=== PATIENT | male | born 1980 | race Caucasian/White ===

== ENCOUNTER 2021-07-11 20:25 | Emergency (ER) | payer OTHER, SELFPAY ==
[2021-07-11 20:29] VITALS: BP 146/94; PULSE 98; RESP 17; TEMP 37.1; O2SAT 97; BMI 42.0
--- NOTE | 2021-07-11 21:31 | ED_ITS ---
HPI - Skin/Abscess/Foreign Bdy General Chief complaint: Skin/Abscess/Foreign Body Stated complaint: renteria rt hand Time Seen by Provider: 07/11/21 20:55 Source: patient Mode of arrival: ambulatory History of Present Illness HPI narrative: 40-year-old male with a past medical history of diabetes presenting to the ED complaining of burn to right middle finger on cooking oil s/p cooking dinner for [employer]. Reports hand partially submerged/hit oil. Denies injury to the area, fever, chills Related Data Previous Rx's Medication Instructions Recorded silver sulfadiazine 1 % topical 1 appl TOPICAL BID #50 g 07/11/21 cream (Silvadene) Allergies Allergy/AdvReac Type Severity Reaction Status Date / Time No Known Allergies Allergy Unverified 07/15/20 16:05 [No Known Allergies*] Review of Systems Review of Systems: Constitutional: No Fever, No Chills Cardiovascular: No Chest Pain, No SOB Respiratory: No Cough Musculoskeletal: No joint pain, No Myalgias, + Joint Swelling Skin: +burn, No rash Neuro: No Weakness, No Numbness, No Paresthesias Yes all other systems are reviewed and are negative [facility] Past Medical History Attestation statement: The following information was validated with the patient. Medical History (Updated 07/11/21 @ 22:18 by GABBI Collins) Diabetes Social History Social History Advance Directives: No Physical Exam Vital Signs: Vital Signs: Last Vital Signs Temp 98.7 F 07/11/21 20:29 Pulse 98 07/11/21 20:29 Resp 17 07/11/21 20:29 BP 146/94 H 07/11/21 20:29 Pulse Ox 97 07/11/21 20:29 Body Mass Index 42.0 Const: General: cooperative, healthy appearing and no acute distress Orientation/consciousness: patient oriented x3 Limitations: no limitations HENMT: Head: Yes normal to inspection Ears: hearing grossly normal bilaterally General nose exam: Normal external nose present Face and sinus: Yes normal facial exam Eyes: General: appearance normal, both eyes and all related structures EOM: EOMs intact bilaterally Neck: Neck: Yes normal visual inspection Resp: Effort & Inspection: normal respiratory effort Auscultation: lung sounds not diminished Cardio: Rate: regular rate GI: Inspection: Yes normal to inspection Skin: Rashes: no rashes Neuro: General: patient oriented x3 and tone normal Gait exam (Neuro): Normal gait present Extrem: Other: 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 Tender to palpation. MDM - Skin/Abscess/Foreign Bdy MDM Narrative Medical decision making narrative: 40-year-old male with a past medical history of diabetes presenting to the ED complaining of burn to right middle finger on cooking oil s/p cooking dinner for [employer]. On exam VSS, NAD, physical exam as above. Will apply Silvadene and nonstick dressing. Patient is to follow-up with his PCP Discharge Plan Discharge Clinical Impression: Burn Patient Disposition: Home, Self-Care Instructions: Superficial Burn (ED) Additional Instructions: Apply Silvadene as prescribed Keep area dry and clean If area begins look infected, is red, there is drainage from the area or you have fever please return to the ED Follow-up with her doctor Prescriptions: New silver sulfadiazine [Silvadene] 1 % cream 1 appl topical BID Qty: 50 RF: 0 Referrals: Physician,Unknown [Primary Care Provider] - 2 days
[2021-07-11] MEDS: Silver Sulfadiazine 1 % Cream 20 GM TUBE 1 APPL TOPICAL (21:41)
== END 2021-07-11 22:29 | disposition home or self-care (01) ==
PROVIDERS: Emergency Provider Student in an Organized Health Care Education/Training Program
DX: T23.101A Burn of first degree of right hand, unspecified site, initial encounter (principal); T31.0 Burns involving less than 10% of body surface; M79.641 Pain in right hand; X10.2XXA Contact with fats and cooking oils, initial encounter; Y93.9 Activity, unspecified; Y92.009 Unspecified place in unspecified non-institutional (private) residence as the place of occurrence of the external cause; Y99.9 Unspecified external cause status
CPT/HCPCS: 99283

== ENCOUNTER 2022-03-09 09:34 | Emergency (ER) | payer OTHER, SELFPAY ==
[2022-03-09 10:52] VITALS: BP 133/87; PULSE 105; RESP 18; TEMP 38.6; O2SAT 98; BMI 37.8
[2022-03-09] MEDS: Ibuprofen 600 MG TABLET PO (10:59)
[2022-03-09 11:06] LABS: Glucose, Whole Blood 275 mg/dL (60-115)
[2022-03-09 11:31] LABS: Influenza A Positive (Negative); Influenza B2 Negative (Negative)
[2022-03-09 11:32] LABS: COVID-19 Test Negative (Negative); IDNOW Serial# 16C4AD1C
--- NOTE | 2022-03-09 11:54 | ED.URI ---
HPI - URI/Sore Throat General Chief Complaint: General Medical Stated Complaint: flu like Time Seen by Provider: 03/09/22 11:43 Source: patient Mode of arrival: ambulatory Limitations: no limitations History of Present Illness HPI Narrative: Patient presents emergency department for evaluation of cough, congestion, and fevers times 4-5 days. States he has received 2 COVID-19 vaccines. Has not received influenza block. Denies any known sick contacts. He denies shaking chills, sore throat, neck pain, chest pain, palpitations, shortness of breath, difficulty breathing, nausea, vomiting, abdominal pain, dysuria, urinary frequency, pedal edema, generalized weakness. Patient is a diabetic, states that he has been trying to obtain a new primary care provider. Has not been taking insulin as he ran out approximately 1 year ago. He has been checking his blood sugars intermittently. Related Data Previous Rx's Medication Instructions Recorded silver sulfadiazine 1 % topical 1 appl TOPICAL BID #50 g 07/11/21 cream (Silvadene) alcohol swabs 1 pad TOPICAL QID 30 Days #200 ea 03/09/22 blood sugar diagnostic (FreeStyle #100 ea 03/09/22 Lite Strips) blood-glucose meter (FreeStyle #1 ea 03/09/22 Lite Meter) insulin glargine 100 unit/mL 15 unit (0.15 mL) SUBCUT BEDTIME 03/09/22 subcutaneous solution (Lantus #10 ml U-100 Insulin) lancets 28 gauge (FreeStyle #100 ea 03/09/22 Lancets) metformin 500 mg tablet 500 mg PO BID 30 Days #60 tab 03/09/22 Allergies Allergy/AdvReac Type Severity Reaction Status Date / Time nitroglycerin AdvReac Headache Verified 03/09/22 10:52 Review of Systems Review of Systems: Constitutional: Positive fever. Positive chills. No weakness. Positive fatigue. ENT/ Mouth: No Ear Pain, positive Nasal Congestion, now is sore throat, No Rhinorrhea, No Swallowing Difficulty Skin: No rash or itching. Cardiovascular: No chest pain. No palpitations. Respiratory: No shortness of breath. Positive cough. No sputum production. Gastrointestinal: No nausea. No vomiting. No diarrhea. No abdominal pain. Genitourinary: No burning micturition. No urinary frequency. Neurologic: No headache. No dizziness. No syncope. No numbness or tingling in the extremities. Musculoskeletal: No muscle pain. No back pain. No joint pain or stiffness. Yes all other systems are reviewed and are negative [facility] Past Medical History Attestation statement: The following information was validated with the patient. Source: old records reviewed Medical History Diabetes Social History Social History Advance Directives: No Advance Directives Information Provided: No Physical Exam Vital Signs: Vital Signs: Last Vital Signs Temp 98.9 F 03/09/22 11:55 Pulse 105 H 03/09/22 10:52 Resp 18 03/09/22 10:52 BP 133/87 03/09/22 10:52 Pulse Ox 98 03/09/22 10:52 BMI result Body Mass Index 37.8 Vital signs have been reviewed as normal and appeared to be correct. Blood pressure normal.? Heart rate normal.? Respiration rate normal. Temperature normal.? Oxygen saturation normal. Appearance: Alert.?Oriented to person, place and time. No acute distress.?Normal affect. Eyes: Pupils equal, round and reactive to light.? ENT: TM normal bilaterally. Pharynx normal.?? Neck: Normal inspection.? Neck supple.??No cervical adenopathy CVS: Heart sounds normal. Normal heart rate and rhythm.? Pulses normal.?? Respiratory: No respiratory distress.? Lung sounds clear to auscultation bilaterally?? Abdomen: Soft and non-tender. Normoactive bowel sounds. Skin: Skin warm and dry.? Normal skin color.? ? Extremities: No lower extremity edema.? Neuro: Moves all extremities spontaneously. Sensation intact bilaterally. No motor deficits. Ambulates with normal steady gait. Course Course Course Narrative: Patient is a 41-year-old male with past medical history of type 2 diabetes, presenting for evaluation of upper respiratory symptoms. COVID-19 testing negative. Influenza testing positive. At this time history and physical exam not consistent with ACS/PE/pneumonia. Well-appearing, nontoxic, afebrile, no tachycardia or tachypnea/hypoxia. Speaking clear full sentences, ambulatory with steady gait. Patient is a type 2 diabetic was not been taking his Lantus insulin 15 units at bedtime or metformin 500 mg p.o. twice daily for what he reports is 1 year, he has been trying to obtain a new primary care provider but is having difficulty. Glucose today is 275. History of physical exam not consistent with DKA. Advised patient to continue monitoring his blood sugars at home fasting in the morning and 3 times daily before meals. Will provide patient with new prescription for Lantus and metformin, provided with instructions regarding obtaining a new primary care provider. Discussed influenza treatment including rest, hydration, Tylenol/ibuprofen as needed for fever and body aches, saline nasal spray, humidifier, [id number] cold medication. Offered Tamiflu and he declined. discussed reasons to return back to the emergency department. All questions were answered. Patient discharged home in stable condition. Provided with a return to work/school note. MDM - URI/Sore Throat Medical Records Attestation: I reviewed the patient's medical records. Lab Data Attestation: I reviewed the patient's lab results. Labs: Lab Results 03/09/22 03/09/22 03/09/22 Range/Units 11:00 11:02 11:02 POC Glucose 275 H (60-115) mg/dL COVID-19 ([facility]) Negative (Negative) COVID-19 Clin Com See Note Influenza Type A ([facility]) Positive A (Negative) Influenza Type B ([facility]) Negative (Negative) Influenza A & B Note See Note Discharge Plan Discharge Clinical Impression: Influenza A, Type 2 diabetes mellitus Patient Disposition: Home, Self-Care Instructions: Influenza (ED), Diabetes and Nutrition (ED), Diabetes and Exercise (ED) Additional Instructions: You have been given a new prescription for your blood glucose meter and supplies. In addition you have been given a new prescription for your Lantus insulin 15 units at bedtime in addition to metformin 500 mg twice a day which is what you were previously taking. As we discussed it is very important that you maintain care with a primary care provider as management of your diabetes is lifelong you may suffer complications without appropriate treatment. You tested positive for flu today, please be sure to rest, stay well hydrated, eat small frequent meals, use Tylenol/ibuprofen as needed for pain or body aches or fevers, return to the emergency department with any new or worsening symptoms or concerns. You can return to work once your symptoms have resolved and you are without fever for 24 hour, Without the use of Tylenol or ibuprofen. Prescriptions: New Lantus U-100 Insulin 100 unit/mL solution 15 unit subcut BEDTIME Qty: 10 0RF metformin 500 mg tablet 500 mg PO BID 30 Days Qty: 60 0RF (DME) blood-glucose meter [FreeStyle Lite Meter] Kit See Rx Instructions .Route Qty: 1 0RF Rx Instructions: As directed (DME) FreeStyle Lite Strips Strip See Rx Instructions .Route Qty: 100 0RF Rx Instructions: As directed (DME) lancets [FreeStyle Lancets] 28 gauge misc See Rx Instructions .Route Qty: 100 0RF Rx Instructions: As directed alcohol swabs Pads, Medicated 1 pad topical QID 30 Days Qty: 200 0RF No Action silver sulfadiazine [Silvadene] 1 % cream 1 appl topical BID Qty: 50 0RF Rx Instructions: apply a 1.5 mm thickness Stand Alone Forms: Work/School Release Interventions: ED Discharge Assessment Last Done: 03/09/22 12:50 Discharge Date/Time: 03/09/22 12:52
[2022-03-09 11:55] VITALS: TEMP 37.2
== END 2022-03-09 12:52 | disposition home or self-care (01) ==
LOC: HO.ED 12:25
PROVIDERS: Emergency Provider Emergency Medicine
DX: J10.1 Influenza due to other identified influenza virus with other respiratory manifestations (principal); E11.9 Type 2 diabetes mellitus without complications; Z20.822 Contact with and (suspected) exposure to COVID-19
CPT/HCPCS: 82947; 87502; 87635; 99283

== ENCOUNTER 2022-05-16 22:42 | Emergency (ER) | payer OTHER, SELFPAY ==
--- NOTE | ~2022-05-16 | XR_ITS ---
EXAMINATION: XR SHOULDER, LEFT CLINICAL INFORMATION: Status post fall COMPARISON: None TECHNIQUE: Three views of the left shoulder. FINDINGS: Glenohumeral alignment is anatomic. No acute fracture is seen. The acromioclavicular joint is intact. XR/XR shoulder LT min 2V IMPRESSION: No acute findings.
[2022-05-16 23:01] VITALS: BP 148/68; BP 148/87; PULSE 100; PULSE 20; RESP 18; TEMP 37.1; O2SAT 98; O2SAT 99; BMI 36.0
--- NOTE | 2022-05-16 23:06 | ED.FALL ---
HPI - Fall General Chief Complaint: Fall Stated Complaint: fall Time Seen by Provider: 05/16/22 23:06 Source: patient Mode of arrival: ambulatory Limitations: no limitations History of Present Illness HPI Narrative: Patient apparently healthy lost balance while trying to protect is 3 years old son and fell on the stairs about 13 steps in no head injury no loss of conscious is who bleeding of pain in the left shoulder also superficial laceration at the sole of the left foot Related Data Previous Rx's Medication Instructions Recorded silver sulfadiazine 1 % topical 1 appl topical BID #50 grams 07/11/21 cream (Silvadene) alcohol swabs 1 pad topical QID 30 days #200 ea 03/09/22 blood sugar diagnostic (FreeStyle #100 ea 03/09/22 Lite Strips) blood-glucose meter (FreeStyle #1 ea 03/09/22 Lite Meter kit) insulin glargine 100 unit/mL 15 unit (0.15 mL) subcut BEDTIME 03/09/22 subcutaneous solution (Lantus #10 mL U-100 Insulin) lancets 28 gauge (FreeStyle #100 ea 03/09/22 Lancets) metformin 500 mg tablet 500 mg PO BID 30 days #60 tabs 03/09/22 ibuprofen 600 mg tablet 600 mg PO Q6H PRN pain #30 tabs 05/17/22 Allergies Allergy/AdvReac Type Severity Reaction Status Date / Time nitroglycerin AdvReac Headache Verified 03/09/22 10:52 Review of Systems Review of Systems: Yes all other systems are reviewed and are negative [facility] Past Medical History Medical History Diabetes Social History Social History Advance Directives: No Physical Exam Vital Signs: Vital Signs: Last Vital Signs Temp 98.8 F 05/16/22 23:01 Pulse 100 05/16/22 23:01 Resp 18 05/16/22 23:01 BP 148/87 H 05/16/22 23:01 Pulse Ox 99 05/16/22 23:01 O2 Del Method 05/16/22 23:01 BMI result Body Mass Index 36.0 Appearance: Alert. Oriented X3. No acute distress. Eyes: PERRLA, No Nystagmus HEENT: Pharynx normal. Oral Mucosa moist atraumatic normocephalic Neck: Normal inspection. Neck supple. CVS: Normal heart rate and rhythm. Pulses normal. Respiratory: No respiratory distress. Equal air entry bilateral, no wheezing/rales/rhonchi Abdomen: Soft and nontender. Bowel sounds are present, no mass palpable, no CVA tenderness Skin: Skin warm and dry. Normal skin color. Normal skin turgor. Superficial flap laceration at the sole of left foot Extremities: No lower extremity edema. No calf tenderness diffuse tenderness left shoulder contour normal neurovascular intact increased pain on abduction of the left shoulder Neuro: Oriented X 3. No motor deficit. MDM - Fall MDM Narrative Medical decision making narrative: Patient left shoulder x-ray negative clinically patient has tendinitis of the rotator cuff had small flap laceration at the sole of left foot which was cleaned and dressing applied Discharge Plan Discharge Clinical Impression: Fall (on) (from) other stairs and steps, initial encounter, Tendonitis of left rotator cuff Patient Disposition: Home, Self-Care Instructions: Rotator Cuff Injury (ED), Foot Contusion (ED) Additional Instructions: Local care as advised Ibuprofen for pain Follow-up with PCP if any concern Wear the sling to support left shoulder Prescriptions: New ibuprofen 600 mg tablet 600 mg PO Q6H PRN (Reason: pain) Qty: 30 0RF No Action silver sulfadiazine [Silvadene] 1 % cream 1 appl topical BID Qty: 50 0RF Rx Instructions: apply a 1.5 mm thickness Lantus U-100 Insulin 100 unit/mL solution 15 unit subcut BEDTIME Qty: 10 0RF metformin 500 mg tablet 500 mg PO BID 30 Days Qty: 60 0RF (DME) blood-glucose meter [FreeStyle Lite Meter] Kit See Rx Instructions .Route Qty: 1 0RF Rx Instructions: As directed (DME) FreeStyle Lite Strips Strip See Rx Instructions .Route Qty: 100 0RF Rx Instructions: As directed (DME) lancets [FreeStyle Lancets] 28 gauge misc See Rx Instructions .Route Qty: 100 0RF Rx Instructions: As directed alcohol swabs Pads, Medicated 1 pad topical QID 30 Days Qty: 200 0RF Stand Alone Forms: Work/School Release Interventions: ED Discharge Assessment Last Done: 05/17/22 01:24 Discharge Date/Time: 05/17/22 01:24
[2022-05-16] MEDS: Ibuprofen 600 MG TABLET PO (23:42)
--- NOTE | 2022-05-16 23:44 | PC.NURSE ---
lac to bottom of left foot cleaned and irrigated. antibiotic ointment applied with non adherent and wrapped per md instructions.
== END 2022-05-17 01:24 | disposition home or self-care (01) ==
PROVIDERS: Emergency Provider Internal Medicine
DX: S91.312A Laceration without foreign body, left foot, initial encounter (principal); S46.002A Unspecified injury of muscle(s) and tendon(s) of the rotator cuff of left shoulder, initial encounter; W10.8XXA Fall (on) (from) other stairs and steps, initial encounter; E11.9 Type 2 diabetes mellitus without complications; Z79.4 Long term (current) use of insulin; Y93.89 Activity, other specified; Y92.018 Other place in single-family (private) house as the place of occurrence of the external cause; Y99.9 Unspecified external cause status
CPT/HCPCS: 73030; 99283